=== PATIENT | female | born 2000 | race Caucasian/White ===

== ENCOUNTER 2020-10-12 17:51 | Emergency (ER) | payer OTHER, SELFPAY ==
[2020-10-12 18:03] VITALS: BP 127/85; PULSE 92; RESP 16; TEMP 36.4; O2SAT 100
--- NOTE | 2020-10-12 18:09 | ECG_ITS ---
Measurements Intervals [place] Rate: 67 P: 59 [place]: 161 QRS: 36 QRSD: 78 T: 42 QT: 399 QTc: 421 Interpretive Statements SINUS RHYTHM BASELINE ARTIFACT- III, AVF, V5-V6 NORMAL ECG Electronically Signed On 10-12-2020 20:43:32 CDT by Ian Joyce D.O.
[2020-10-12 18:23] LABS: Basophils Percent Auto 0.7 % (0.2-1.2); Eosinophils Absolute Auto 0.3 K/mm3 (0-0.3); Hematocrit 40.6 % (37.0-47.0); Hemoglobin 13.5 g/dL (12.0-15.0); Lymphocytes Absolute Auto 1.58 K/mm3 (0.9-3.2); Mean Corpuscular HGB Conc 33.3 g/dl (32-36); Mean Corpuscular Hemoglobin 29.7 pg (26-34); Mean Corpuscular Volume 89.4 fl (80-100); Mean Platelet Volume 10.7 fl (7.4-10.4); Monocytes Absolute Auto 0.4 K/mm3 (0.1-0.6); Monocytes Percent Auto 8.9 % (2.6-8.5); Neutrophils Absolute Auto 2.2 K/mm3 (1.3-6.7); Neutrophils Percent Auto 49.4 % (45.5-73.1); Platelet Count Result 228 k/mm3 (150-375); Red Blood Count 4.54 M/mm3 (4.2-5.4); Red Cell Distribution Width 12.8 % (11.5-14.5); White Blood Count 4.5 K/mm3 (4.5-10.0)
[2020-10-12 18:34] LABS: Anion Gap 10 mmol/L (8-16); Blood Urea Nitrogen 9 mg/dL (7-17); Calcium 9.3 mg/dL (8.4-10.2); Carbon Dioxide 25 mmol/L (22-30); Chloride 106 mmol/L (98-107); Estimated CRCL calculation 84 ml/min; Estimated Glomerular Filt Rate > 60; Glucose 91 mg/dL (65-105); Potassium 4.2 mmol/L (3.4-5.0); Sodium 141 mmol/L (137-145)
--- NOTE | 2020-10-12 21:05 | PC.NURSE ---
Called lab to add on UA/rika rflx cul @ [id number]
[2020-10-12 21:35] LABS: Amphetamine Screen Urine Negative (Negative); Barbiturate Screen Urine Negative (Negative); Benzodiazepines Screen Urine Negative (Negative); Cannabinoid Screen Urine Negative (Negative); Cocaine Screen Urine Negative (Negative); Methadone Screen Urine Negative (Negative); Opiate Screen Urine Negative (Negative); Phencyclidine Screen Urine Negative (Negative)
[2020-10-12 21:55] VITALS: BP 124/76; PULSE 78; RESP 16; TEMP 36.3; O2SAT 99
[2020-10-12 22:05] LABS: Add Urine Microscopic? YES; Appearance Urine Clear (Clear); Bacteria Urine Trace /hpf; Bilirubin Urine Negative (Negative); Blood Urine 3+ (Negative); Color Urine Yellow (Yellow); Glucose Urine UA Negative (Negative); Ketones Urine 1+ mg/dL (Negative); Leukocyte Esterase Ur Negative LEU/UL (Negative); Mucus Urine Moderate /lpf; Nitrate Urine Negative (Negative); Protein Urine 1+ mg/dL (Negative); Specific Grav Ur 1.021 (1.001-1.035); Squamous Epithelial Cell Urine Few /hpf (Few)
--- NOTE | 2020-10-12 22:16 | ED.GENADULT ---
HPI - General Adult General Chief complaint: Anxiety <Prashanth Brannon PA-C - Last Filed: 10/12/20 22:21> Stated complaint: anxiety, syncope <Prashanth Brannon PA-C - Last Filed: 10/12/20 22:21> Time Seen by Provider: 10/12/20 20:42 <Prashanth Brannon PA-C - Last Filed: 10/12/20 22:21> Source: patient, family, EMS and RN notes reviewed <Prashanth Brannon PA-C - Last Filed: 10/12/20 22:21> Mode of arrival: EMS <Prashanth Brannon PA-C - Last Filed: 10/12/20 22:21> Limitations: no limitations <Prashanth Brannon PA-C - Last Filed: 10/12/20 22:21> History of Present Illness HPI narrative: Patient is a 19-year-old female who presents to emergency department for evaluation of anxiety attack and syncope patient has been having increasing episodes of anxiety is treated by her therapist and psychiatrist for this. Patient with history of depression and anxiety. Patient is accompanied by her mother. Patient denies any suicidal or homicidal ideation. Patient has decreased appetite in the recent past. Patient otherwise in the room in no distress noting that she did not eat today. Patient was at work when she had a syncopal episode and presented per EMS at that time for this <Prashanth Brannon PA-C - Last Filed: 10/12/20 22:21> Review of Systems Review of Systems: All systems reviewed & are unremarkable except as noted in HPI and below <Prashanth Brannon PA-C - Last Filed: 10/12/20 22:21> PMFSH Past Medical History Medical History: Medical History (Updated 10/13/20 @ 00:00 by Jazmin Terrazas) Anxiety Depression <Prashanth Brannon PA-C - Last Filed: 10/12/20 22:21> Social History Social History: Social History (Updated 10/12/20 @ 22:18 by Prashanth Brannon PA-C) Smoking status: Never smoker Substance use type: does not use <Prashanth Brannon PA-C - Last Filed: 10/12/20 22:21> Exam Narrative: Exam Narrative: GENERAL: Well-appearing, well-nourished, and in no acute distress. HEAD: Normocephalic, atraumatic. EYES: PERRLA and EOMI. ENT: Nares clear, no rhinorrhea or epistaxis. Mucous membranes moist. CHEST: Clear to auscultation. No respiratory distress. No wheezes rales or rhonchi HEART: Regular rate and rhythm. No murmur heard. EXTREMITIES: Normal range of motion. No edema. SKIN: Warm, dry, no rash. NEURO: No focal deficits. Alert and oriented x3. PSYCH: Normal mood and affect. <Prashanth Brannon PA-C - Last Filed: 10/12/20 22:21> Course Course Emergency Course: Patient in the room at this time in no distress aware of case findings treatment plan and diagnosis agreeing to follow-up as instructed with her therapist and psychiatrist felt appropriate for outpatient reevaluation mother and patient feel comfortable with this treatment plan no other high risk changes in the evaluation <Prashanth Brannon PA-C - Last Filed: 10/12/20 22:21> Vital Signs Vital signs: Vital Signs Temperature 36.4 C 10/12/20 18:03 Pulse Rate 92 10/12/20 18:03 Respiratory Rate 16 10/12/20 18:03 Blood Pressure 127/85 10/12/20 18:03 Pulse Oximetry 100 10/12/20 18:03 Temperature 36.3 C L 10/12/20 22:27 Pulse Rate 76 10/12/20 22:27 Respiratory Rate 16 10/12/20 22:27 Blood Pressure 120/76 10/12/20 22:27 Pulse Oximetry 99 10/12/20 22:27 <JOE Cardenas Last Filed: 10/12/20 22:21> Vital Signs Temperature 36.4 C 10/12/20 18:03 Pulse Rate 92 10/12/20 18:03 Respiratory Rate 16 10/12/20 18:03 Blood Pressure 127/85 10/12/20 18:03 Pulse Oximetry 100 10/12/20 18:03 Temperature 36.3 C L 10/12/20 22:27 Pulse Rate 76 10/12/20 22:27 Respiratory Rate 16 10/12/20 22:27 Blood Pressure 120/76 10/12/20 22:27 Pulse Oximetry 99 10/12/20 22:27 <Heri Peters MD - Last Filed: 10/15/20 16:19> Medical Decision Making MDM Narrative Medical decision making narrative: Patient presented with lik
[2020-10-12 22:17] LABS: Pregnancy On Board Control Positive; Urine Pregnancy Test Negative
[2020-10-12 22:27] VITALS: BP 120/76; PULSE 76; RESP 16; TEMP 36.3; O2SAT 99
== END 2020-10-12 22:27 | disposition home or self-care (01) ==
PROVIDERS: Emergency Medicine Emergency Medical Services; Emergency Provider Emergency Medicine; PCP Pediatrics
DX: R55 Syncope and collapse (principal); F41.9 Anxiety disorder, unspecified; F32.9 Major depressive disorder, single episode, unspecified
CPT/HCPCS: 36415; 80048; 80307; 81001; 81025; 85025; 87086; 93005; 99283

== ENCOUNTER 2022-03-23 14:27 | Outpatient (CLI) | payer OTHER, SELFPAY ==
[2022-03-23 14:56] LABS: Basophils Percent Auto 0.7 % (0.2-1.2); Eosinophils Absolute Auto 0.2 K/mm3 (0-0.3); Eosinophils Percent Auto 2.6 % (0-4.4); Hematocrit 33.8 % (37.0-47.0); Hemoglobin 11.3 g/dL (12.0-15.0); Immature Granulocyte Absolute 0.03 K/mm3 (0.00-0.031); Immature Granulocyte Percent A 0.5 % (0-0.5); Lymphocytes Absolute Auto 1.43 K/mm3 (0.9-3.2); Lymphocytes Percent Auto 23.6 % (18.3-44.2); Mean Corpuscular HGB Conc 33.4 g/dl (32-36); Mean Corpuscular Hemoglobin 29.4 pg (26-34); Mean Corpuscular Volume 87.8 fl (80-100); Mean Platelet Volume 10.6 fl (7.4-10.4); Monocytes Absolute Auto 0.4 K/mm3 (0.1-0.6); Monocytes Percent Auto 5.8 % (2.6-8.5); Neutrophils Absolute Auto 4.1 K/mm3 (1.3-6.7); Neutrophils Percent Auto 66.8 % (45.5-73.1); Platelet Count Result 222 k/mm3 (150-375); Red Blood Count 3.85 M/mm3 (4.2-5.4); Red Cell Distribution Width 13.7 % (11.5-14.5); White Blood Count 6.1 K/mm3 (4.5-10.0)
[2022-03-23 15:31] LABS: Rapid Plasma Reagin Non-Reactive (NonReactive)
[2022-03-23 15:46] LABS: HIV 1/2 Ab P24 Ag Result Negative (Negative)
[2022-03-23 17:48] LABS: Hepatitis B Surface Antigen Negative (Negative)
[2022-03-23 18:20] LABS: Rubella IgG Antibody > 120.0 IU/ML
[2022-03-28 17:15] LABS: CMV IgG Antibody <0.60 U/mL (<0.60)
[2022-03-29 03:56] LABS: Hematocrit 35.5 % (35.0-45.0); Hemoglobin 11.3 g/dL (11.7-15.5); MCV 87.9 fL (80.0-100.0); RDW 13.5 % (11.0-15.0); Red Blood Cell Count 4.04 Mill/uL (3.80-5.10)
== END 2022-03-23 14:28 | disposition home or self-care (01) ==
LOC: ANHLAB 14:29
PROVIDERS: PCP Pediatrics; Visit Provider Student in an Organized Health Care Education/Training Program
DX: N91.2 Amenorrhea, unspecified (principal)
CPT/HCPCS: 36415; 83021; 84702; 85025; 86592; 86644; 86703; 86747; 86762; 86787; 86850; 86900; 86901; 87086; 87340; G0432

== ENCOUNTER 2022-08-20 10:37 | Outpatient (CLI) | payer OTHER, SELFPAY ==
[2022-08-20 12:03] LABS: Basophils Percent Auto 0.4 % (0.2-1.2); Eosinophils Absolute Auto 0.3 K/mm3 (0-0.3); Eosinophils Percent Auto 3.1 % (0-4.4); Hematocrit 34.3 % (37.0-47.0); Hemoglobin 11.5 g/dL (12.0-15.0); Immature Granulocyte Absolute 0.14 K/mm3 (0.00-0.031); Immature Granulocyte Percent A 1.5 % (0-0.5); Lymphocytes Absolute Auto 1.41 K/mm3 (0.9-3.2); Lymphocytes Percent Auto 14.8 % (18.3-44.2); Mean Corpuscular HGB Conc 33.5 g/dl (32-36); Mean Corpuscular Hemoglobin 29.6 pg (26-34); Mean Corpuscular Volume 88.2 fl (80-100); Monocytes Absolute Auto 0.5 K/mm3 (0.1-0.6); Monocytes Percent Auto 5.4 % (2.6-8.5); Neutrophils Absolute Auto 7.1 K/mm3 (1.3-6.7); Neutrophils Percent Auto 74.8 % (45.5-73.1); Platelet Count Result 207 k/mm3 (150-375); Red Blood Count 3.89 M/mm3 (4.2-5.4); Red Cell Distribution Width 13.2 % (11.5-14.5); White Blood Count 9.6 K/mm3 (4.5-10.0)
[2022-08-20 12:21] LABS: Glucose 1 Hour PP 50gm Dose 102 mg/dL
[2022-08-20 13:04] LABS: HIV 1/2 Ab P24 Ag Result Negative (Negative)
== END 2022-08-20 10:38 | disposition home or self-care (01) ==
PROVIDERS: PCP Pediatrics; Visit Provider Obstetrics & Gynecology
DX: Z34.90 Encounter for supervision of normal pregnancy, unspecified, unspecified trimester (principal)
CPT/HCPCS: 36415; 82947; 85025; 86703; G0432

== ENCOUNTER 2022-11-07 16:05 | Inpatient (IN) | payer OTHER, SELFPAY ==
[2022-11-07] VITALS (31 sets, daily range): BP systolic 76–143; BP diastolic 44–103; PULSE 79–147; TEMP 36.4–36.6; BMI 31.0
--- NOTE | 2022-11-07 16:30 | LDADM ---
This patient, Mckayla Guan, was admitted to Labor/Delivery/Recovery 109 on 11/07/22 at 16:05. Plans for labor, pain management and were discussed with patient. Patient/family oriented to hospital policies and general routines including ID bracelet, bed and alarms, visiting hours, pain management, procedures, bathroom and other care routines, personal items, smoking policy, room service/diet and guest tray routines, infant security routines, and visiting hours. Patient/Family are encouraged to report perceived risks to care and to ask questions if they do not understand what they are told or what they should do. See OBIX for further documentation.
[2022-11-07 16:42] LABS: Basophils Percent Auto 0.4 % (0.2-1.2); Eosinophils Absolute Auto 0.1 K/mm3 (0-0.3); Eosinophils Percent Auto 0.8 % (0-4.4); Hemoglobin 11.8 g/dL (12.0-15.0); Immature Granulocyte Absolute 0.18 K/mm3 (0.00-0.031); Immature Granulocyte Percent A 1.8 % (0-0.5); Mean Corpuscular HGB Conc 33.7 g/dl (32-36); Mean Corpuscular Hemoglobin 28.4 pg (26-34); Mean Corpuscular Volume 84.1 fl (80-100); Mean Platelet Volume 11.9 fl (7.4-10.4); Monocytes Absolute Auto 0.6 K/mm3 (0.1-0.6); Monocytes Percent Auto 6.1 % (2.6-8.5); Neutrophils Absolute Auto 7.5 K/mm3 (1.3-6.7); Neutrophils Percent Auto 74.9 % (45.5-73.1); Platelet Count Result 229 k/mm3 (150-375); Red Blood Count 4.16 M/mm3 (4.2-5.4); Red Cell Distribution Width 14.5 % (11.5-14.5)
--- NOTE | 2022-11-07 16:42 | WPDANESEPP ---
Anes - Eval Pre Procedure Procedure: labor epidural Date/Time: 11/07/22 16:42 Pre Op Diagnosis: iol Patient Data Age: 21 Gender: F Height: 1.63 m Weight: 82 kg Last Vital Signs Pulse 114 H 11/07/22 16:35 BP 114/61 11/07/22 16:35 O2 Del Method Room Air 11/07/22 16:29 Allergies Allergy/AdvReac Type Severity Reaction Status Date / Time No Known Allergies Allergy Verified 11/05/22 10:19 Home Medications Medication Instructions Recorded Confirmed Type vitamin-ferrous fumarate 1 cap PO DAILY 04/19/22 10/29/22 History 65 mg iron-folic acid 1 mg capsule escitalopram oxalate 20 mg tablet 20 mg PO DAILY 09/03/22 10/29/22 History (Lexapro) ferrous sulfate 325 mg (65 mg 325 mg PO DAILY 10/13/22 10/29/22 History iron) tablet Laboratory Tests 11/07/22 16:29 WBC Pending RBC Pending Hgb Pending Hct Pending MCV Pending MCH Pending MCHC Pending RDW Pending Plt Count Pending MPV Pending Immature Gran % (Auto) Pending Neut % (Auto) Pending Lymph % (Auto) Pending [place] % (Auto) Pending Eos % (Auto) Pending Baso % (Auto) Pending Lymph # (Auto) Pending [place] # (Auto) Pending Eos # (Auto) Pending Baso # (Auto) Pending Abs Immat Gran (auto) Pending Absolute Neuts (auto) Pending Absolute Nucleated RBC Pending Nucleated RBC % Pending RPR Pending Patient hx anesthesia problems: none Family hx anesthesia problems: none Results Review: All pre-operative results and documents have been reviewed as part of the pre-operative evaluation. [facility] Past Medical History Medical History (Updated 11/07/22 @ 16:43 by Trisha Osman CRNA) Anxiety Depression Obesity (BMI 30-39.9) Remove/insert IUD Family History Family History Other No pertinent family history Social History Social History Smoking status: Never smoker Alcohol intake: never Substance use: never Substance use type: does not use Lack of Transportation: No Lack of Food: Never True Current Housing: I Have Housing Concerned About Future Housing: No Difficulty Paying Gas/Electric Bills: No Difficulty Paying for Meds: No Currently Unemployed: No Education: High School Diploma/GED Difficulty w/ Childcare or Family Care: No Living arrangements: alone Occupation/Education: occupation Additional occupation/education comments: shipping at [employer] Gender identity (if verbalized by the patient): Female Sexual Orientation (if Verbalized by the Patient): Straight or Heterosexual Spiritual care concerns: No Exam Day of Procedure 11/07/22 16:42 Patient weight: obese Heart: regular rate and rhythm Lungs: clear to auscultation Airway: Mallampati scale Neurological: alert and oriented
[2022-11-07] MEDS: DINOPROSTONE 10 MG VAG INSERT VAGINAL (16:52)
[2022-11-08] VITALS (77 sets, daily range): BP systolic 81–149; BP diastolic 38–111; PULSE 67–173; RESP 16–20; TEMP 36.3–36.9; O2SAT 82–100
[2022-11-08] MEDS: fentaNYL CITRATE INJ (*CRX) 100 MCG/2 ML VIAL 50 MCG IV PUSH (02:45)
[2022-11-08] MEDS: fentaNYL CITRATE INJ (*CRX) 100 MCG/2 ML VIAL IV PUSH (04:59)
[2022-11-08] MEDS: LACTATED RINGERS 1,000 ML 125 ML IV CONT ×2 (05:14→06:01)
[2022-11-08] MEDS: OXYTOCIN 30 UNITS/NS 500 ML 30 UNITS/500 ML BAG 6 UNITS IV CONT (06:54)
[2022-11-08] MEDS: OXYTOCIN 30 UNITS/NS 500 ML 30 UNITS/500 ML BAG 125 UNITS IV CONT (08:26)
--- NOTE | 2022-11-08 08:36 | P.PCNOB_ITS ---
OB - Delivery Note Procedure Induction method: Per Cervidil Protocol Delivery augmentation: Pitocin Delivery monitor: External FHT and External Uterine Route of delivery: Episiotomy description: None Laceration Description: Perineal - 2nd Degree Delivery repair: chromic Specimen: No Quantitative Blood Loss (ml): 200 Anesthesia type: Epidural Disposition: Floor Complications: None Narrative: Patient prepped draped usual manner for procedure. Maternal expulsive efforts readily delivered vertex over intact perineum. Further effort delivered the rest of the baby. Cord clamped cut was passed off. Placenta delivered spontaneously and uterus was well contracted minimal. Second-degree laceration in midline noted and this was approximated using 2-0 chromic approximate vaginal tissue running interlocking manner, the tissue was approximated a subcuticular layer of 2-0 chromic approximate skin this well contracted significant bleeding immediate condition of mother baby both excellent. [place] Baby Weeks of gestation at delivery: 39 Infant gender: Male presentation: vertex position: Right Occiput Anterior Placenta delivery description: Spontaneous Cord Vessel Description: 3 Vessels score one minute: 8 score five minutes: 9 AMG Delivery Billing Delivery Delivery: Delivery Charge
--- NOTE | 2022-11-08 08:36 | WPDOBADMIT ---
Obstetrics - Admit Note Admission Note: record reviewed. No pertinent additions to the history and/or any subsequent changes in the physical findings that are not consistent with the expected course of the were found. Additions to the history and/or subsequent changes in the physical findings follow. None.
--- NOTE | 2022-11-08 08:36 | WPDHPUPDATE1 ---
History and Physical Update Update Date/Time: 11/08/22 08:36 History and Physical has been reviewed, including an updated exam of the patient. There are NO changes in the patient's condition. Risks, benefits, and alternatives have been discussed and questions answered. Patient agrees to proceed with procedure.
[2022-11-08] MEDS: WITCH HAZEL 40 PADS 1 PAD TOPICAL (10:56)
[2022-11-08] MEDS: BENZOCAINE 20% AER SPR (*SP) 56 GM CAN 1 SPRAY TOPICAL (10:56)
--- NOTE | 2022-11-08 11:15 | PC.NURSE ---
Patient transferred to post room #292 via wheelchair. Support person present. Oriented to unit, room, information board, rooming in, admission packet and security measures. Patient verbalizes understanding.
[2022-11-08 11:35] LABS: Rapid Plasma Reagin Non-Reactive (NonReactive)
[2022-11-08] MEDS: IBUPROFEN 600 MG TABLET PO ×2 (13:31→21:27)
--- NOTE | 2022-11-08 15:37 | PC.NURSE ---
[id number] Introductions were made, then consulted with patient to assess needs related to . Mother led the conversation with her?plans to feed?her infant, the?experience so far using her nipple shield that she brought from home. Mother works well with her infant with encouragement and education. Encouraged understanding of the benefits of skin to skin (demonstrating unwrapping and placing upright on her chest), stimulating with massage touch, changing positions to encourage wakefulness, how to watch for early feeding cues, responsive feeding, feeding on demand (aiming for 8-12 times in 24 hours, about every 2-3 hours), milk production, building/maintaining a milk supply, duration of feeding, signs of adequate intake/output and how to record on the feeding sheet. Reviewed positioning and ear, shoulder, hip alignment, supporting the breast to facilitate a deep latch, asymmetrical latch (off-center), leading with the chin with a big, open, wide gape and body close to mother. Infant latched optimally to the right breast in football position without a nipple shield. Education given to mother of how to visualize suck/swallow ratios and listen for drinking at the breast. was able to maintain latch without discomfort to mother. Nipple care reviewed with optimal latch and good positioning. Reviewed good handwashing when or touching the breast/nipples to prevent infection. Resources used to facilitate learning were used with the tool, mom and baby guide. Mother voiced understanding of skin to skin, stimulating with massage touch, responsive feedings, talking to infant to encourage if it has been 2 -2.5 hours since the start of the last , to call if infant does not latch, or if there is discomfort with contact information written on the communication board. Mother voiced understanding of information, demonstrated learning and will call if there is a request for assistance. Reported to the Primary RN.
[2022-11-09 00:16] VITALS: BP 108/51; PULSE 85; RESP 16; TEMP 36.9; O2SAT 99
[2022-11-09 05:47] LABS: Hematocrit 29.7 % (37.0-47.0); Hemoglobin 9.6 g/dL (12.0-15.0)
--- NOTE | 2022-11-09 07:00 | PC.NURSE ---
PT introductions made and plan and plan of care discussed per post , pain management, breast feeding, and daily care activities. PT recipient of such instructions and no barriers to learning identified at this time. PT received such instructions via one to one discussion , mom baby care guide and demonstration this shift. Patient verbalizes understanding.
[2022-11-09 07:54] VITALS: BP 118/70; PULSE 94; RESP 18; TEMP 36.8; O2SAT 97
[2022-11-09] MEDS: ACETAMINOPHEN 325 MG TABLET 650 MG PO ×2 (08:52→16:14)
[2022-11-09] MEDS: ESCITALOPRAM OXALATE 10 MG TABLET 20 MG PO (08:53)
[2022-11-09] MEDS: DOCUSATE SODIUM 100 MG CAPSULE PO ×2 (08:53→16:14)
[2022-11-09] MEDS: MULTIVIT/MIN/PREN/FOL AC/IRON TABLET 1 TAB PO (08:53)
[2022-11-09] MEDS: IBUPROFEN 600 MG TABLET PO ×2 (08:53→16:15)
[2022-11-09] MEDS: POLYSACCHARIDE IRON COMPLEX 150 MG CAPSULE PO ×2 (08:54→16:14)
[2022-11-09 09:00] VITALS: PULSE 94; RESP 18; O2SAT 97
--- NOTE | 2022-11-09 09:28 | WPDANLDPN2 ---
Anes-Prog Note L&D Date/Time: 11/09/22 09:28 Comfortable throughout: labor and delivery Neuraxial method: epidural Epidural/Spinal procedure site: clean & non-tender Neuro status: Neuro function grossly intact. Cardiovascular status: normal Respiratory status: normal Airway patency: baseline Mental status: baseline Post-Op hydration status: normal Vital Signs: Last Vital Signs Temp 98.2 F 11/09/22 07:54 Pulse 94 11/09/22 07:54 Resp 18 11/09/22 07:54 BP 118/70 11/09/22 07:54 Pulse Ox 97 11/09/22 07:54 O2 Del Method Room Air 11/07/22 16:29 Pain score (VAS): 0/10 Post-procedural complaints: none Patient feedback: Patient satisfied with anesthetic care.
--- NOTE | 2022-11-09 12:03 | P.DS_ITS ---
DS: Admitting Diagnosis Discharge Date 11/09/2022 Admitting Diagnosis DS: Discharge Diagnosis Discharge Diagnosis (1) , delivered: Code(s): O80 - Encounter for full-term uncomplicated delivery Status: Acute OB - DS: Summary OB Procedures : None OB Procedures Intrapartum: Spontaneous Vag Delivery OB Procedures: : None Time Spent with Patient Time attestation: Total time spent providing and/or coordinating discharge services: DS: Data Data Completed and Pending Labs on day of discharge: Labs from last 24 hours 11/09/22 05:03 Hgb 9.6 L Hct 29.7 L Discharge Plan Discharge Discharging Clinician: Colby Steiner Patient Disposition: Home, Self-Care Activity: as tolerated and pelvic rest Diet: as tolerated Patient Instructions: Antibiotic Form Stand Alone Forms: General Discharge Information Follow-up/Referrals: Colby Steiner MD [Physician] - 3 Weeks Discharge Medications: New ibuprofen 600 mg Tablet 600 mg PO Q6H PRN (Reason: Cramping) Qty: 30 0RF Continued escitalopram oxalate [Lexapro] 20 mg tablet 20 mg PO DAILY vit-iron fum-folic ac 65 mg iron- 1 mg capsule 1 cap PO DAILY ferrous sulfate 325 mg (65 mg iron) Tablet 325 mg PO DAILY Date of admission: 11/07/22 16:05 Primary Care Provider: PHYSICIAN,[employer]LL SHE[employer]TER Admitting Provider: Colby Steiner Attending physician on admission: Colby Steiner Condition: Stable
--- NOTE | 2022-11-09 13:30 | PC.NURSE ---
Radiology called to push x ray report to [facility] and to give mom a CD copy at discharge
--- NOTE | 2022-11-09 16:15 | PC.NURSE ---
PT receive discharge instructions per protocol and verbalize understanding of such care.
--- NOTE | 2022-11-09 16:40 | PC.NURSE ---
Pt discharged to home ambulatory accompanied by family and and walked to waiting car. Follow up appts confirmed
[2022-11-12 10:59] VITALS: BP 130/72; PULSE 81; RESP 18; TEMP 37.7; O2SAT 100
== END 2022-11-09 16:40 | disposition home or self-care (01) | DRG 807 ==
LOC: ANHLDR 11-08 09:36 → ANHOB2 11-08 11:36
PROVIDERS: Admitting Provider Obstetrics & Gynecology; Visit Provider Obstetrics & Gynecology
DX: O70.1 Second degree perineal laceration during delivery (principal); Z37.0 Single live birth; Z3A.39 39 weeks gestation of pregnancy
CPT/HCPCS: 36415; 85014; 85018; 85025; 86592; 86850; 86900; 86901; A9270; J2590; J2795; J3010; J7120